=== PATIENT | male | born 1955 | race Caucasian/White ===

== ENCOUNTER 2016-08-05 09:21 | Emergency (ER) | payer SELFPAY ==
[~2016-08-05] VITALS: Ht 160 cm; Wt 78.1 kg
[~2016-08-05 09:21] MED LIST: CIPR500T4 PO; Lisinopril PO; MULTI PO; Tamsulosin Hcl PO
[2016-08-05 09:23] VITALS: Ht 160 cm; Wt 78.1 kg
[2016-08-05] MEDS ORDERED: KETOROLAC 60 MG INJ IM STA (10:15)
--- NOTE | 2016-08-05 11:00 | RADRPT ---
PROCEDURE: Left humerus x-ray CLINICAL INDICATION: Pain. TECHNIQUE: AP and lateral views of the humerus were obtained. COMPARISON: None FINDINGS: The soft tissues and bony elements are normal. AC and glenohumeral joints are normal. IMPRESSION: Normal x-ray of the left humerus. RPTAT:AAJJ Physician Sandy Date Time Electronically viewed and signed by Bishop Thorne Physician on 08/05/2016 10:59 ABBI/
[2016-08-05] MEDS ORDERED: NAPR-260 PO (11:44)
--- NOTE | 2016-08-05 11:47 | RADRPT ---
PROCEDURE: XR Left Shoulder. CLINICAL INDICATION: Left shoulder pain. TECHNIQUE: Three views. Frontal internal rotation, frontal external rotation, and scapular Y-view . COMPARISON: No prior study is available for comparison. FINDINGS: There is no fracture or dislocation. The soft tissues are normal. Articular surfaces are intact. There is no lytic or blastic lesion. There is no radiopaque foreign body. IMPRESSION: 1. Normal images of the left shoulder. RPTAT: QQ .Compa Valenzuela MD, MD Date Time Electronically viewed and signed by .Compa Valenzuela MD, MD on 08/05/2016 11:46 .R/
--- NOTE | 2016-08-05 11:57 | ERD ---
ER Documentation Chief Complaint Date/Time DATE: 08/05/16 TIME: 11:52 Chief Complaint left shoulder pain after heavy lifting HPI This is a 60-year-old male presents to the ER with left shoulder pain that started last week after he lifted something heavy. Left shoulder pain radiates throughout his humerus. He denies any elbow pain. Shoulder pain is worse whenever he lifts his shoulder. Is described as throbbing in quality he tried ibuprofen however it does not work. Patient denies any numbness or tingling of the shoulder or upper extremity. He denies any weakness to the extremity. Patient denies any fevers or chills. ROS 12 point review of systems was done, all negative except per HPI. Medications Home Meds Active Scripts Naproxen* (Naprosyn*) 500 Mg Tablet, 500 MG PO BID Y for PAIN AND/OR INFLAMMATION for 7 Days, #14 TAB Prov:VIOLETA BROWN 08/05/16 Ciprofloxacin Hcl* (Ciprofloxacin Hcl*) 500 Mg Tablet, 500 MG PO BID for 7 Days , TAB Prov:REGGABRIELLERMARIANELA 11/02/14 [Tamsulosin Hcl] 0.4 MG CAPSR No Conflict Check, 0.4 MG PO BID for 30 Days Prov:REGGABRIELLERMARIANELA 11/02/14 Multivitamins* (Theragran*) 1 Tab Tab, 1 TAB PO DAILY for 30 Days, TAB Prov:STEVERMARIANELA 11/02/14 [Lisinopril] 5 MG TAB No Conflict Check, 5 MG PO DAILY for 30 Days, TAB Prov:REGGABRIELLERMARIANELA 11/02/14 Allergies Allergies: Coded Allergies: No Known Allergy (Unverified , 10/30/14) PMhx/Soc History of Surgery: No (R EYE LASER SURGERY) Anesthesia Reaction: No Hx Neurological Disorder: No Hx Respiratory Disorders: No Hx Cardiac Disorders: No Hx Psychiatric Problems: No Hx Miscellaneous Medical Probl: No Hx Alcohol Use: Yes (PT STATED DRINKS BEER OCCASSIONALLY) Hx Substance Use: No Hx Tobacco Use: Yes (QUIT 20 YEARS AGO) Smoking Status: Former smoker Physical Exam Vitals Vital Signs Date Time Temp Pulse Resp B/P Pulse Ox O2 Delivery O2 Flow Rate FiO2 08/05/16 09:23 98.1 74 18 160/78 99 Physical Exam GENERAL: The patient is well developed and appropriate for usual state of health , in no apparent distress. HEENT: Atraumatic. CHEST: Clear to auscultation bilaterally. There are no rales, wheezes or rhonchi. HEART: Regular rate and rhythm. No murmurs, clicks, rubs or gallops. EXTREMITIES: Left shoulder: No deformities, no scapular winging. Tenderness to palpation along the bicipital tendon. Patient has painful and decreased range of motion with shoulder extension and internal rotation. Patient is able to abduct and adduct shoulder, without pain and has full range of motion. Left elbow: No deformities, normal and full range of motion. NEURO: Alert and oriented. SKIN: There is no apparent rash or petechia. The skin is warm and dry. Results 24 hrs Current Medications Medications (Trade) Dose Ordered Sig/Byron Route PRN Reason Start Time Stop Time Status Last Admin Dose Admin Ketorolac Tromethamine (Toradol) 60 mg ONCE STAT IM 08/05/16 10:15 08/05/16 10:17 DC 08/05/16 10:20 Procedures/MDM ER course: Patient was stable throughout ER course was given Decadron IM, with no complications. Differential diagnosis includes but is not limited to: Rotator cuff tear, bicipital tendinitis, fracture, dislocation, impingement syndrome, frozen shoulder. This is a 52-year-old male presents to the ER with shoulder pain after lifting something heavy. At this time patient likely has bicipital tendinitis, he did have pain over the bicipital tendon. Patient is neurovascularly intact, he is afebrile and well-appearing. Patient was put in a shoulder sling for mobilization. He will be sent home with naproxen. Patient needs to follow-up with his primary care doctor within 1-2 days or return to ER sooner if symptoms worsen. My medical decision making was shared with the patient he understands and agrees with plan. Departure Diagnosis: Primary Impression: Shoulder pain Condition: Stable Patient Instructions: Shoulder Pain (Uncertain Cause) Additional Instructions: Call your primary care doctor TOMORROW for an appointment during the next 1-2 days.See the doctor sooner or return here if your condition worsens before your appointment time. VIOLETA BROWN August 05, 2016 11:56
== END 2016-08-05 11:59 | disposition home or self-care (01) ==
LOC: FTE 09:21
DX: M25.512 Pain in left shoulder (principal); Z04.3 Encounter for examination and observation following other accident; Z87.891 Personal history of nicotine dependence
CPT/HCPCS: 73030; 73060; 96372; 99284; J1885